=== PATIENT | female | born 1990 | race Caucasian/White ===

== ENCOUNTER 2021-09-15 19:52 | Emergency (ER) | payer MEDICAID ==
[~2021-09-15] VITALS: Ht 157.5 cm; Wt 48.2 kg
[2021-09-15] MEDS ORDERED: 0.9% SODIUM CHLORIDE 10 ML SYRINGE IVP PRN (20:45)
[2021-09-15 21:16] LABS: BASOPHILS % (AUTO) 0.2 % (0.0-2.0); EOSINOPHILS % (AUTO) 4.1 % (1.0-6.0); HEMATOCRIT 26.7 % (36-46); HEMOGLOBIN 8.7 g/dL (12.0-16.0); LYMPHOCYTES # (AUTO) 2.6 K/uL (1.0-4.8); LYMPHOCYTES % (AUTO) 30.2 % (22.0-44.0); MEAN CORPUSCULAR HEMOGLOBIN 25.7 pg (26.0-34.0); MEAN CORPUSCULAR HGB CONC 32.7 G/dL (31.0-37.0); MEAN CORPUSCULAR VOLUME 79 fL (80-100); MONOCYTES # (AUTO) 0.6 K/uL (0.1-1.0); MONOCYTES % (AUTO) 7.3 % (2.0-9.0); NEUTROPHILS % (AUTO) 58.2 % (40.0-70.0); PLATELET COUNT (AUTO) 519 K/uL (150-450); RED CELL DISTRIBUTION WIDTH 16.6 % (11.5-14.5)
[2021-09-15 21:30] LABS: INR 1.1 (0.9-1.1); PROTHROMBIN TIME 11.9 SEC (9.4-11.6)
[2021-09-15 21:34] LABS: B-TYPE NATRIURETIC PEPTIDE 6 pg/mL (0-100)
[2021-09-15 21:40] LABS: ANION GAP 8 mmol/L (8-16); CALCIUM, TOTAL 8.7 mg/dL (8.8-10.5); CARBON DIOXIDE 30 mmol/L (22-29); CHLORIDE 102 mmol/L (98-107); CREATININE 0.44 mg/dL (0.60-1.30); GLOMERULAR FILTR. RATE CALC > 60 mL/min (>60); GLUCOSE,RANDOM 117 mg/dL (70-110); POTASSIUM 3.3 mmol/L (3.5-5.1); SODIUM SERUM 140 mmol/L (136-145); UREA NITROGEN, BLOOD 6 mg/dL (7-18)
[2021-09-15] MEDS ORDERED: MORPHINE SULFATE 4 MG/ML SYRINGE IVP ONE (21:45)
[2021-09-15] MEDS ORDERED: ONDANSETRON HCL 4 MG/2 ML VIAL IVP ONE (21:45)
[2021-09-15 21:52] LABS: ALANINE AMINOTRANSFERASE 14 U/L (12-78); ALBUMIN 2.5 g/dL (3.4-5.0); ALKALINE PHOSPHATASE 110 U/L (46-116); ASPARTATE AMINOTRANSFERASE 10 U/L (15-37); BILIRUBIN,TOTAL 0.1 mg/dL (0.1-1.0); CREATINE KINASE, TOTAL ONLY 35 U/L (26-192); HCG,QUANTITATIVE 1 mIU/mL (0-6); TOTAL PROTEIN, SERUM 8.7 g/dL (6.4-8.2)
[2021-09-15] MEDS ORDERED: VANCOMYCIN HCL 1 GM/D5% WATER 200 ML IV ONE (22:00)
[2021-09-15] MEDS ORDERED: ONDANSETRON HCL 4 MG/2 ML VIAL IVP PRN (22:15)
[2021-09-15] MEDS ORDERED: ACETAMINOPHEN 325 MG TABLET PO PRN (22:15)
[2021-09-15] MEDS ORDERED: POTASSIUM CHLORIDE 20 MEQ ER TABLET PO ONE (22:15)
[2021-09-15 22:38] LABS: D-DIMER 1.41 mg/L FEU (0.00-0.50)
[2021-09-15 22:39] LABS: C.DIFF GDH ANTIGEN, Stool Positive (Negative)
[2021-09-15 22:43] LABS: C.DIFF TOXINS A&B, Stool Positive (Negative)
[2021-09-15] MEDS ORDERED: PIPERACILLIN/TAZO 3.375 GM/D5W 50 ML IV SCH (23:00)
[2021-09-15 23:21] LABS: COVID AG,FIA SOURCE NASAL SWAB
[2021-09-16] MEDS ORDERED: HEPARIN SODIUM,PORCINE 5,000 UNITS/ML VIAL SQ SCH
[2021-09-16 00:30] VITALS: BP 127/68
[2021-09-16] MEDS ORDERED: VANCOMYCIN HCL 750 MG in DEXTROSE 5%-WATER 250 ML IV SCH (08:00)
== END 2021-09-16 03:49 | disposition left against medical advice (07) ==
LOC: EMS 19:58
DX: L89.329 Pressure ulcer of left buttock, unspecified stage (principal); L89.529 Pressure ulcer of left ankle, unspecified stage; G82.20 Paraplegia, unspecified; F43.10 Post-traumatic stress disorder, unspecified; Z20.822 Contact with and (suspected) exposure to COVID-19
CPT/HCPCS: 36415; 80053; 82550; 83605; 83880; 84145; 84484; 84702; 85025; 85379; 85610; 85730; 87040; 87070; 87324; 87426; 87449; 93005; 96365; 96366; 96375; 99285; J2270; J2405; J3370; J7060